=== PATIENT | male | born 1975 | race Caucasian/White ===

== ENCOUNTER 2020-11-18 06:30 | Outpatient (CLI) | payer OTHER | END 2020-11-18 23:59 | disposition home or self-care (01) | LOC: LAB 06:30 | PROVIDERS: ATTEND Internal Medicine | DX: Z01.812 Encounter for preprocedural laboratory examination (principal); Z20.822 Contact with and (suspected) exposure to COVID-19; G56.22 Lesion of ulnar nerve, left upper limb ==

== ENCOUNTER 2020-11-19 10:02 | Outpatient (CLI) | payer OTHER ==
[2020-11-19 10:48] LABS: HEMATOCRIT 54.5 % (36.7-47.1); MEAN CORPUSCULAR VOLUME 86.5 fL (73.0-96.2); PLATELET COUNT (AUTO) 254 K/uL (152-348)
[2020-11-19 10:52] LABS: CREATININE 1.5 mg/dL (0.6-1.3); POTASSIUM 4.5 mmol/L (3.5-5.1)
[2020-11-19 10:57] LABS: *BILIRUBIN,URIN NEGATIVE (NEGATIVE); *BLOOD, URINE NEGATIVE (NEGATIVE); *CLARITY,URINE CLEAR (CLEAR); *COLOR,URINE YELLOW (YELLOW); *KETONES,URINE NEGATIVE (NEGATIVE); *UROBILINOGEN,URINE 0.2 E.U./dl (NORMAL); LEUKOCYTE ESTERASE ,URINE NEGATIVE (NEGATIVE); NITRITE, URINE NEGATIVE (NEGATIVE); UGLUCOSE NEGATIVE (NEGATIVE)
[2020-11-19 10:58] LABS: BILIRUBIN,TOTAL 0.5 mg/dL (0.2-1.0); TOTAL PROTEIN, SERUM 7.4 g/dL (6.4-8.2)
[2020-11-19 14:23] LABS: EOSINOPHILS % (MANUAL) 2 % (0-8); LYMPHOCYTES % (MANUAL) 25 % (20-40); MONOCYTES % (MANUAL) 7 % (2-10); NEUTROPHILS % (MANUAL) 66 % (42-75)
== END 2020-11-19 23:59 | disposition home or self-care (01) ==
LOC: LAB 10:02
PROVIDERS: ATTEND Internal Medicine
DX: M77.02 Medial epicondylitis, left elbow (principal); G56.22 Lesion of ulnar nerve, left upper limb
CPT/HCPCS: 36415; 70030-TC; 85025; 85730; A4663

== ENCOUNTER 2020-11-21 06:53 | Day surgery (SDC) | payer OTHER ==
[2020-11-21] MEDS ORDERED: IV NORMAL SALINE 1000 ML BAG IV ONE (06:54)
[2020-11-21] MEDS ORDERED: SEVOFLURANE 250 ML BOTTLE IH ONE (06:54)
[2020-11-21] MEDS ORDERED: DEXAMETHASONE SOD PHOSPHATE 4 MG INJ IV ONE (06:54)
[2020-11-21] MEDS ORDERED: METOCLOPRAMIDE HCL 10 MG/2 ML VIAL IV ONE (06:54)
[2020-11-21] MEDS ORDERED: IV LACTATED RINGERS SOLUTION 1,000 ML BAG IV ONE (06:54)
[2020-11-21] MEDS ORDERED: KETOROLAC TROMETHAMINE 30 MG INJ IM ONE (06:54)
[2020-11-21] MEDS ORDERED: LIDOCAINE-MPF 2% 5 ML VIAL IJ ONE (06:54)
[2020-11-21] MEDS ORDERED: PROPOFOL 200 MG/20 ML BOTTLE IV ONE (06:54)
[2020-11-21] MEDS ORDERED: ONDANSETRON 4 MG/2 ML VIAL IV ONE (06:54)
[2020-11-21] MEDS ORDERED: POLYMYXIN B SULFATE 500,000 UNITS, BACITRACIN 50,000 UNITS, NORMAL SALINE 20 ML MC ONE (08:00)
[2020-11-21] MEDS ORDERED: CLINDAMYCIN PHOSPHATE IV 900 MG in IV DEXTROSE 5% 100 ML IV ONE (08:00)
[2020-11-21] MEDS ORDERED: FENTANYL CITRATE 100 MCG/2 ML AMPUL ONE (08:17)
[2020-11-21] MEDS ORDERED: MIDAZOLAM HCL 2 MG/2 ML VIAL ONE (08:17)
[2020-11-21] MEDS ORDERED: BUPIVACAINE PF 0.5% 30 ML VIAL ONE ×2 (08:42→08:43)
[2020-11-21] MEDS ORDERED: ONDANSETRON 4 MG/2 ML VIAL ONE (10:08)
[2020-11-21] MEDS ORDERED: HYDROMORPHONE 1 MG/1 ML DISP.SYRIN ONE (10:08)
[2020-11-21] MEDS ORDERED: TRAMADOL HCL 50 MG TABLET ONE (11:33)
== END 2020-11-21 11:45 | disposition home or self-care (01) ==
LOC: DS 06:53
PROVIDERS: ATTEND Orthopaedic Surgery
DX: G56.22 Lesion of ulnar nerve, left upper limb (principal); Z79.899 Other long term (current) drug therapy; Z98.890 Other specified postprocedural states; Z72.89 Other problems related to lifestyle; Z88.0 Allergy status to penicillin; Z88.1 Allergy status to other antibiotic agents; Z88.2 Allergy status to sulfonamides; Z88.8 Allergy status to other drugs, medicaments and biological substances
CPT/HCPCS: 64718; J1100; J1170; J1885; J2250; J2405 ×2; J2765; J3010; J3490 ×5; J7060; J7120 ×2; A4649; J7030